=== PATIENT | male | born 1935 | race Caucasian/White ===

== ENCOUNTER 2018-10-01 12:26 | Outpatient (CLI) | payer OTHER | END 2018-10-01 23:59 | disposition home or self-care (01) | LOC: RAD 12:26 | PROVIDERS: ATTEND Internal Medicine Critical Care Medicine | DX: J96.12 Chronic respiratory failure with hypercapnia (principal); Z53.09 Procedure and treatment not carried out because of other contraindication ==

== ENCOUNTER 2018-10-12 09:04 | Outpatient (CLI) | payer OTHER | END 2018-10-12 23:59 | disposition home or self-care (01) | LOC: RAD 09:04 | PROVIDERS: ATTEND Internal Medicine Critical Care Medicine | DX: R91.8 Other nonspecific abnormal finding of lung field (principal); K57.30 Diverticulosis of large intestine without perforation or abscess without bleeding; J47.9 Bronchiectasis, uncomplicated; J32.8 Other chronic sinusitis; J98.11 Atelectasis; R18.8 Other ascites | CPT/HCPCS: 70551; 71250; 74176 ==